=== PATIENT | male | born 1970 | race Caucasian/White ===

== ENCOUNTER 2018-04-28 21:18 | Emergency (ER) | payer BC ==
[~2018-04-28] VITALS: Ht 177.8 cm; Wt 113.9 kg
[2018-04-28 21:20] VITALS: Ht 177.8 cm; Wt 113.9 kg
[2018-04-28 23:15] VITALS: BP 154/108
== END 2018-04-28 23:15 | disposition home or self-care (01) ==
LOC: ED 21:18
DX: R07.89 Other chest pain (principal); I10 Essential (primary) hypertension; R42 Dizziness and giddiness